=== PATIENT | female | born 2000 | race Two or more races ===

== ENCOUNTER 2020-04-20 15:16 | Outpatient (REF) | payer OTHER, SELFPAY ==
[2020-04-21 03:37] LABS: CT PCR NOT DETECTED (Not Detect.); NG PCR NOT DETECTED (Not Detect.)
== END 2020-04-20 15:17 | disposition home or self-care (01) ==
LOC: HO.LAB 15:16
PROVIDERS: Visit Provider Advanced Practice Midwife
DX: Z01.419 Encounter for gynecological examination (general) (routine) without abnormal findings (principal); Z11.8 Encounter for screening for other infectious and parasitic diseases; Z11.3 Encounter for screening for infections with a predominantly sexual mode of transmission
CPT/HCPCS: 87491; 87591; 88142

== ENCOUNTER 2020-09-17 08:20 | Outpatient (REF) | payer OTHER, SELFPAY ==
[2020-09-17 11:12] LABS: Thyroid Stimulating Hormone 1.51 uIU/mL (0.32-4.0)
[2020-09-17 16:16] LABS: CT PCR NOT DETECTED (Not Detect.); NG PCR NOT DETECTED (Not Detect.)
[2020-09-18 12:01] LABS: BV Int Neg Control Negative (Negative); BV Int Pos Control Positive (Positive)
[2020-09-20 14:07] LABS: Prolactin 12.4 ng/mL
[2020-09-21 18:01] LABS: DHEA Sulfate 341 mcg/dL (18-391)
[2020-09-22 18:57] LABS: Testosterone, Total 68 ng/dL (2-45)
== END 2020-09-17 08:21 | disposition home or self-care (01) ==
LOC: HO.LAB 08:20
PROVIDERS: Visit Provider Advanced Practice Midwife
DX: N92.6 Irregular menstruation, unspecified (principal); R10.2 Pelvic and perineal pain; Z20.2 Contact with and (suspected) exposure to infections with a predominantly sexual mode of transmission
CPT/HCPCS: 36415; 81025; 82627; 83498; 84146; 84402; 84403; 84443; 87480; 87491; 87510; 87591; 87660; 99212

== ENCOUNTER 2020-10-05 11:00 | Outpatient (REF) | payer OTHER, SELFPAY ==
--- NOTE | ~2020-10-05 | US_ITS ---
EXAMINATION: US PELVIS AND TRANSVAGINAL CLINICAL INFORMATION: Pelvic and perineal pain. COMPARISON: None. TECHNIQUE: Transabdominal and transvaginal imaging of pelvis is performed. FINDINGS: On transabdominal ultrasound the uterus is anteverted and anteflexed measuring 8.2 cm in length, 3.8 cm in AP and 5.9 cm in transverse dimension. Endometrial thickness is 1.9 cm. No focal uterine lesions seen. Right ovary measures 3.9 x 2.0 x 2.5 cm and volume 10.2 mL. It appears unremarkable. Left ovary measures 4.0 x 3.1 x 2.9 cm and volume 18.5 mL. There is a slightly echogenic ruptured lesion measuring 2.0 x 1.7 x 1.7 cm, question ruptured or corpus luteal cyst. There is a small amount of free fluid in the cul-de-sac. US/US pelvic and transvaginal IMPRESSION: Anteverted and anteflexed uterus without focal lesion. Small left ovarian rupture or corpus luteal cyst. Small amount of free fluid in the cul-de-sac.
== END 2020-10-05 11:01 | disposition home or self-care (01) ==
LOC: HO.US 11:00
PROVIDERS: PCP Internal Medicine Sports Medicine; Visit Provider Advanced Practice Midwife
DX: R10.2 Pelvic and perineal pain (principal); N92.6 Irregular menstruation, unspecified
CPT/HCPCS: 76830; 76856

== ENCOUNTER → 2020-10-12 11:21 | Outpatient (BNVA) | payer OTHER, SELFPAY | PROVIDERS: PCP Internal Medicine Sports Medicine; Visit Provider Advanced Practice Midwife ==

== ENCOUNTER → 2020-10-29 10:36 | Outpatient (BNVA) | payer OTHER, SELFPAY | PROVIDERS: PCP Internal Medicine Sports Medicine; Visit Provider Advanced Practice Midwife | DX: Z32.01 Encounter for pregnancy test, result positive (principal); O26.891 Other specified pregnancy related conditions, first trimester; N92.6 Irregular menstruation, unspecified; K29.70 Gastritis, unspecified, without bleeding; Z3A.09 9 weeks gestation of pregnancy | CPT/HCPCS: 99212 ==

== ENCOUNTER → 2020-11-04 09:49 | Outpatient (BNVA) | payer OTHER, SELFPAY | PROVIDERS: Visit Provider Advanced Practice Midwife ==

== ENCOUNTER 2020-11-05 08:53 | Outpatient (REF) | payer OTHER, SELFPAY ==
--- NOTE | ~2020-11-05 | US_ITS ---
EXAMINATION: OBSTETRICAL ULTRASOUND, FIRST TRIMESTER HISTORY: 20-year-old at the 10.4 weeks of gestation Uncertain dates LMP: 08/24/2020 COMPARISON: 10/05/2020 TECHNIQUE: Real time transabdominal imaging with color and M-mode Doppler. FINDINGS: A single, live IUP CRL of 16.6 mm c/w 8.1wks is noted. Heart Rate: 169 beats per minute. Both maternal ovaries are seen and appear normal. GESTATIONAL AGE: 1. GA from LMP: 10.4 wks 2. GA from AUA: 8.1 wks ESTIMATED DATE OF DELIVERY: 1. BESS from LMP: 05/31/2021 2. BESS from AUA: 06/16/2021 US/US OB <= 14 weeks fetus IMPRESSION: 1. A single live IUP 2. Size less than dates, CRL corresponds to 8.1 weeks. 3. Adjust her BESS to 06/16/2021 based on today's examination. Thank you very much for this referral. This note was generated with a voice recognition program. Please excuse any errors which may have been overlooked during my review of this note. Sometimes these errors may affect the content or meaning of a given sentence.
== END 2020-11-05 08:54 | disposition home or self-care (01) ==
LOC: HO.US 08:53
PROVIDERS: Visit Provider Advanced Practice Midwife
DX: O26.841 Uterine size-date discrepancy, first trimester (principal); Z3A.10 10 weeks gestation of pregnancy
CPT/HCPCS: 76801

== ENCOUNTER 2020-11-26 10:23 | Outpatient (REF) | payer OTHER, SELFPAY ==
[2020-11-26 16:44] LABS: CT PCR NOT DETECTED (Not Detect.); NG PCR NOT DETECTED (Not Detect.)
[2020-11-27 12:00] LABS: BV Int Neg Control Negative (Negative); BV Int Pos Control Positive (Positive)
== END 2020-11-26 10:24 | disposition home or self-care (01) ==
LOC: HO.LAB 10:23
PROVIDERS: Visit Provider Advanced Practice Midwife
DX: O26.891 Other specified pregnancy related conditions, first trimester (principal); R30.0 Dysuria; F43.9 Reaction to severe stress, unspecified
CPT/HCPCS: 81003; 87086; 87480; 87491; 87510; 87591; 87660; 99212

== ENCOUNTER 2020-12-03 10:26 | Outpatient (REF) | payer OTHER, SELFPAY ==
--- NOTE | ~2020-12-03 | US_ITS ---
EXAMINATION: OBSTETRICAL ULTRASOUND, FIRST TRIMESTER HISTORY: 20-year-old at the 12.1 weeks of gestation NT screening COMPARISON: 11/05/2020 TECHNIQUE: Real time transabdominal imaging with color and M-mode Doppler. FINDINGS: A single, live IUP CRL of 62.6 mm c/w 12.5wks is noted. Heart Rate: 167 beats per minute. Normal yolk sac seen. NT was 2.7.mm. NB Present The embryo appears sonographically wnl for this GA. Both maternal ovaries are seen and appear normal. GESTATIONAL AGE: 1. Established GA: 12.1 wks 2. GA from AUA: 12.5 wks ESTIMATED DATE OF DELIVERY: 1. Established BESS: 06/16/2021 2. BESS from AUA: 06/12/2021 US/US OB 1T nuc measure IMPRESSION: 1. A single live IUP 2. Size equals dates 3. NT of 2.7 mm MFM Consultation: I reviewed the ultrasound findings along with significance of NT measurement. The NT of less than 3mm is generally reassuring. However, the sensitivity for T21 detection is only 60%. I reviewed the availability of serum aneuploidy screening which includes cell-free DNA and placental protein based tests. I discussed the sensitivity, false-positive rate, and other limitations associated with each test. I also reviewed the availability of invasive diagnostic tests that are associated small but definite risk of miscarriage. We also reviewed the differences between screening tests and diagnostic tests. After our discussion, she opted for the First trimester screening that is based on cell-free DNA or non-invasive testing (NIPT). The result will be faxed to your office in approximately 7 days. A follow up at 18 weeks for survey has been scheduled. Thank you very much for this referral. Total time 30 minutes. The time spent was devoted to counseling the patient about the disease and diagnosis, coordinating care including reviewing her records, pertinent lab data and studies, as well as discussing diagnostic evaluation and workup, plan therapeutic interventions and future disposition of care. This includes any additional research needed to obtain further information in formulating the plan of care of this patient. This note was generated with a voice recognition program. Please excuse any errors which may have been overlooked during my review of this note. Sometimes these errors may affect the content or meaning of a given sentence.
[2020-12-03 12:24] LABS: Hematocrit 40.1 % (37-47); Hemoglobin 13.9 g/dl (12.0-16.0); Mean Corpuscular HGB Conc 34.7 g/dl (31.0-35.0); Mean Corpuscular Hemoglobin 29.3 pg (27.0-33.0); Mean Corpuscular Volume 84.4 fL (80-98); Mean Platelet Volume 10.3 fL (9.4-12.3); Platelet Count 257 X10*3/uL (160-400); Red Blood Count 4.75 X10*6/uL (4.20-5.50); Red Cell Distribution Width 12.5 % (11.0-16.0); White Blood Count 8.8 X10*3/uL (4.8-10.8)
[2020-12-03 12:46] LABS: Amphetamine Screen Urine Not Detected (Not Detect); Barbiturates, Urine Not Detected (Not Detect); Benzodiazepines Screen Urine Not Detected (Not Detect); Cannabinoid Screen Urine POSITIVE (Not Detect); Cocaine Screen Urine Not Detected (Not Detect); Opiate Screen Urine Not Detected (Not Detect); Phencyclidine Screen Urine Not Detected (Not Detect)
[2020-12-03 13:01] LABS: Syphilis Screen Nonreactive (Nonreactive)
[2020-12-04 09:01] LABS: Rubella IgG Antibody 7.16 Index
[2020-12-06 03:42] LABS: HBsAGNum1 0.15 S/CO (0.00-0.99); Hepatitis B Surface Antigen Negative (Negative); ~HepC Num1 0.06 S/CO (0.00-0.79); ~Hepatitis C Antibody Nonreactive (Nonreactive)
[2020-12-06 03:45] LABS: HIV AB/AG Nonreactive (Nonreactive); HIV Num 1 0.11 S/CO (0.00-0.99)
[2020-12-06 22:56] LABS: Hematocrit 41.2 % (35.0-45.0); Hemoglobin 13.7 g/dL (11.7-15.5); MCH 28.2 pg (27.0-33.0); MCV 84.9 fL (80.0-100.0); RBC 4.85 Million/uL (3.80-5.10); RDW 12.4 % (11.0-15.0)
== END 2020-12-03 10:27 | disposition home or self-care (01) ==
LOC: HO.US 10:26
PROVIDERS: Visit Provider Advanced Practice Midwife
DX: Z34.91 Encounter for supervision of normal pregnancy, unspecified, first trimester (principal); Z36.82 Encounter for antenatal screening for nuchal translucency
CPT/HCPCS: 76813; 80307; 83020; 85014; 85018; 85027; 85041; 86762; 86780; 86787; 86803; 86850; 86900; 86901; 87340; 87389

== ENCOUNTER → 2020-12-16 13:43 | Outpatient (BNVA) | payer OTHER, SELFPAY | PROVIDERS: Visit Provider Advanced Practice Midwife | DX: Z34.92 Encounter for supervision of normal pregnancy, unspecified, second trimester (principal); Z3A.14 14 weeks gestation of pregnancy | CPT/HCPCS: 99212 ==

== ENCOUNTER 2022-05-25 09:34 | Outpatient (REF) | payer OTHER, SELFPAY ==
[2022-05-25 15:11] LABS: CT PCR NOT DETECTED (Not Detect.); NG PCR NOT DETECTED (Not Detect.)
[2022-05-26 12:10] LABS: BV Int Neg Control Negative (Negative); BV Int Pos Control Positive (Positive)
== END 2022-05-25 09:35 | disposition home or self-care (01) ==
LOC: HO.LNP 09:34
PROVIDERS: Visit Provider Advanced Practice Midwife
DX: Z11.3 Encounter for screening for infections with a predominantly sexual mode of transmission (principal); N89.8 Other specified noninflammatory disorders of vagina
CPT/HCPCS: 87480; 87491; 87510; 87591; 87660

== ENCOUNTER 2023-03-14 08:40 | Outpatient (AMB) | payer OTHER, SELFPAY ==
--- NOTE | 2023-03-14 09:06 | MHC.OFFVIS ---
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 The patient agreed to use of a medical representative during this encounter. Scribed for [place]IA Jackson by Katelynn Lamb medical representative, on 03/14/2023 at 9:38 am EST. Principal Clerk Required: Yes Principal Clerk Language: Cane Pusher Name: [email or web address] [id number] Information Interpreted: non-clinical & clinical Director Of Distribution: Director Of Distribution Present (Aidyn) Allergies No Known Allergies Allergy (Verified 03/14/23 09:12) Is last menstrual period known: Yes Last menstrual period: 01/29/23 Post menopausal: No HPI HPI Comments History of Present Illness Details She is a premenopausal woman presenting for annual exam. She admits to eating healthy and tries to stay active with exercise. Currently sexually active and last UPI was Sunday; does not use BC. She removed Nexplanon due to weight gain earlier this past summer. Reports she is not interested in BC because she is scared of weight gain and is loosing weight without trying. Reports her menses was irregular in the past prior to BC, skipping 2 months at a time. Denies vaginal itching and irritation. STD screening and blood work offered; she accepts. Denies family hx of breast, colon and ovarian cancer. Last pap smear 04/21/20. [facility] Surgical History No history of previous surgery Family History Father No problems noted. Mother No problems noted. Paternal Grandmother Alzheimer's dementia Paternal Grandfather Diabetes 1.5, managed as type 1 CAD (coronary artery disease) Social History Household Members: Significant Other Both parents involved: Yes Caregiver staying overnight: No Housing: House Are you a primary rn patient care to a significant other at home: No Do you presently have visiting nurse or other home services: No 75 years or older and lives alone: No Alcohol intake: never Patient Tobacco Use Status: Never used Tobacco service: No Current occupational status: unemployed Gender identity: Female Female Reproductive History Menstrual Age of Menarche: 7 Duration of menses: 3-5 days Date of last menstrual period: 01/29/23 control method: none Total pregnancies: 1 Full term: 1 Number of Living Children: 1 Date of last pap smear: 04/21/20 (negative) Physical Exam Vital Signs: Last Vital Signs BP 110/62 03/14/23 09:10 BMI result Body Mass Index 27.8 Const General: cooperative, healthy appearing, no acute distress, well developed and alert Orientation/consciousness: patient oriented x3 HEENT Head: Yes normal to inspection Eyes General: appearance normal, both eyes and all related structures Neck Neck: Yes normal visual inspection Thyroid: Thyroid normal Chest Chest palpation & inspection: normal inspection of the chest Breast/axilla inspection: normal inspection of the breasts (no puckering, dimpling, peau de orange, retraction, discharge, masses) Breast/axilla palpation: normal palpation of the breasts Resp Effort & Inspection: normal respiratory effort GI Inspection: Yes normal to inspection Palpation (GI): Soft to palpation (to palpation) Rectal Exam - Female: deferred General: Yes bladder normal to inspection External Female Exam: normal external appearance and normal appearance of the urethra Speculum Exam - Vagina: normal appearance of the vagina, normal palpation and normal vaginal discharge Speculum Exam - Cervix: normal appearance of the cervix and normal palpation Bimanual exam- vagina & uterus: normal palpation and normal palpation Bimanual Exam- Adnexa, other: normal adnexae and no masses Skin General skin exam: no rashes or lesions noted Neuro General: patient oriented x3 Cognition (Neuro): normal cognition Extrem General: Yes normal to inspection Psych Attitude: cooperative Thought process: Normal thought process present Results AMB Test Urine AMB Test Urine Negative Last Edit by RICHI Montalvo on 03/14/23 09:29 AMB Test Urine AMB Test Urine Negative Last Edit by RICHI Montalvo on 03/14/23 09:50 Results Reviewed Results Reviewed: Laboratory Last Values Tst Clinic Negative 03/14/23 09:47 Assessment & Plan Assessment & Plan (1) Encounter for well woman exam: Code(s): Z01.419 - Encounter for gynecological examination (general) (routine) without abnormal findings Plan: Discussed: Current recommendations for pap smears per ASCCP guidelines. Breast awareness and periodic self breast exams. Maintaining a healthy lifestyle including a well balanced diet and routine exercise. Advised to use condoms for STD and prevention. If missed menses take at home test. All of her questions and concerns were addressed to the best of my ability. RTO in one year for AG. (2) Potential exposure to STD: Code(s): Z20.2 - Contact with and (suspected) exposure to infections with a predominantly sexual mode of transmission Plan: BV testing and GC/CT panel today. STD blood work ordered. Await results and treat accordingly. (3) Irregular menses: Code(s): N92.6 - Irregular menstruation, unspecified Plan: Monitor periods, report any unscheduled bleeding, bleeding episodes less than 21 days apart or heavy prolonged menstrual bleeding. If abnormal bleeding pattern occurs, contact the office for further evaluation. Orders: Orders Hepatitis C Antibody Today Z20.2 - Contact with and (suspected) exposure to infections with a predominantly sexual mode of transmission Syphilis Screen Today Z20.2 - Contact with and (suspected) exposure to infections with a predominantly sexual mode of transmission AMB HCG Urine Test Today Z32.02 - Encounter for test, result negative CT NG by PCR Today Z20.2 - Contact with and (suspected) exposure to infections with a predominantly sexual mode of transmission Pap Smear Today Z12.4 - Encounter for screening for malignant neoplasm of cervix AMB HCG Urine Test Today Z32.02 - Encounter for test, result negative Hepatitis B Core Antibody Today Z20.2 - Contact with and (suspected) exposure to infections with a predominantly sexual mode of transmission HIV Ab/Ag Today Z20.2 - Contact with and (suspected) exposure to infections with a predominantly sexual mode of transmission Coding Level of Care Code Est Pt Prev Care 18-39y(58390) Diagnoses Encounter for well woman exam Z01.419 Potential exposure to STD Z20.2 Irregular menses N92.6
[2023-03-14 09:10] VITALS: BP 110/62; BMI 27.8
== END 2023-03-14 09:48 | disposition home or self-care (01) ==
PROVIDERS: Visit Provider Advanced Practice Midwife
DX: Z01.419 Encounter for gynecological examination (general) (routine) without abnormal findings (principal); Z20.2 Contact with and (suspected) exposure to infections with a predominantly sexual mode of transmission; N92.6 Irregular menstruation, unspecified; Z32.02 Encounter for pregnancy test, result negative
CPT/HCPCS: 99395

== ENCOUNTER 2023-03-14 08:40 | Outpatient (REF) | payer OTHER, SELFPAY ==
[2023-03-14 14:37] LABS: CT PCR NOT DETECTED (Not Detect.); NG PCR NOT DETECTED (Not Detect.)
[2023-03-27 18:18] LABS: HPV mRNA E6/E7 rflx Not Detected (Not Detected)
== END 2023-03-14 08:41 | disposition home or self-care (01) ==
LOC: HO.LNP 08:40
PROVIDERS: Visit Provider Advanced Practice Midwife
DX: Z01.419 Encounter for gynecological examination (general) (routine) without abnormal findings (principal); N92.6 Irregular menstruation, unspecified; Z20.2 Contact with and (suspected) exposure to infections with a predominantly sexual mode of transmission; Z11.51 Encounter for screening for human papillomavirus (HPV)
CPT/HCPCS: 0353U; 81025; 87624; 88142; 99395

== ENCOUNTER 2023-12-25 10:52 | Outpatient (REF) | payer OTHER, SELFPAY ==
[2023-12-26 07:32] LABS: CT PCR NOT DETECTED (Not Detect.); NG PCR NOT DETECTED (Not Detect.)
[2023-12-26 09:02] LABS: Bacterial Vaginosis PCR NEGATIVE (Negative); Candida Group PCR NOT DETECTED (Not Detect); Candida glab krusei PCR NOT DETECTED (Not Detect); Trichomonas vaginalis PCR NOT DETECTED (Not Detect)
== END 2023-12-25 10:53 | disposition home or self-care (01) ==
LOC: HO.LAB 10:52
PROVIDERS: Visit Provider Advanced Practice Midwife
DX: N89.8 Other specified noninflammatory disorders of vagina (principal); R63.5 Abnormal weight gain; R87.610 Atypical squamous cells of undetermined significance on cytologic smear of cervix (ASC-US); R30.0 Dysuria; N94.89 Other specified conditions associated with female genital organs and menstrual cycle; Z30.09 Encounter for other general counseling and advice on contraception; Z98.890 Other specified postprocedural states; Z20.2 Contact with and (suspected) exposure to infections with a predominantly sexual mode of transmission
CPT/HCPCS: 0352U; 87086; 87491; 87591; 99212

== ENCOUNTER 2023-12-25 10:52 | Outpatient (AMB) | payer OTHER, SELFPAY ==
--- NOTE | 2023-12-25 10:54 | A.OFFVIS_ITS ---
Vital Signs 12/25/23 11:05 Height 5 ft 4 in Weight 166 lb BMI 28.5 BP 110/68 Intake Visit Reasons: vaginal odor Airline Counter Agent Services: Airline Counter Agent Present Information Interpreted: clinical only Sample Hand: Sample Hand Present Allergies No Known Allergies Allergy (Verified 12/25/23 11:09) Medication List - Last Reconciled 12/25/23 by Minnie George CNM No Known Home Meds Is last menstrual period known: Yes Last menstrual period: 12/03/23 HPI HPI vaginal odor: Details: She an odor when she pees and it chiang when she pees it is only when she pees she does not like mucosal membranes that burning she has no itching or anything else. She is not contraceptive thing she is interested in contraception she had the Nexplanon in the past but she had took it out the 2nd time because she was gaining weight with it and it was letting her lose weight. Her periods are little bit irregular she has been keeping track in her phone and they range from q 3-5 weeks, her last period was December 02 but she is not sure when the Nexplanon come she expressed interested in Depo-Provera. 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 She thinks that is why she might have a urinary tract infection. [facility] Surgical History No history of previous surgery Family History Father No problems noted. Mother No problems noted. Paternal Grandmother Alzheimer's dementia Paternal Grandfather Diabetes 1.5, managed as type 1 CAD (coronary artery disease) Social History Household Members: Significant Other Housing: House Are you a primary aged or disabled care worker to a significant other at home: No Do you presently have visiting nurse or other home services: No Alcohol intake: never Patient Tobacco Use Status: Never used Tobacco service: No Current occupational status: unemployed Gender identity: Female Female Reproductive History Menstrual Age of Menarche: 7 Duration of menses: 3-5 days Date of last menstrual period: 12/03/23 control method: none Total pregnancies: 1 Full term: 1 Date of last pap smear: 03/14/23 (epithelial cell abnormality, previous pap,2020,WNL) History of abnormal pap smear: Yes Physical Exam Vital Signs: Last Vital Signs BP 110/68 12/25/23 11:05 BMI result Body Mass Index 28.5 Other: Normal pelvic exam uterus small anteverted mobile nontender bladder also nontender adnexa nontender no evidence of abnormal discharge or inflammation. Evidence of abdominal plasty. External Female Exam: normal external appearance and normal appearance of the urethra Speculum Exam - Vagina: normal appearance of the vagina and normal vaginal discharge Speculum Exam - Cervix: normal appearance of the cervix and Cervical os closed Bimanual exam- vagina & uterus: normal bimanual exam, uterine size normal, consistency normal, uterine mobility normal, uterine shape normal and non-tender Bimanual Exam- Adnexa, other: normal adnexae, no masses and No adnexal tenderness Results Reviewed Results Reviewed: Name: Ernestina Martinez Age/Sex: 22/F Attending: Yasmin Huerta CNM : 2000 Submitted by: Yasmin Huerta CNM Copies to: MR #: [id number] Status: DEP REF Collected: 03/14/23 Location: [facility] Received: 03/14/23 Interpretation General Category: Epithelial cell abnormality. Adequacy: Endocervical component present. Interpretation: Atypical squamous cells of undetermined significance, rare. Abundant, partially obscuring acute inflammation and blood. HPV mRNA E6/E7: Not Detected This assay detects E6/E7 viral messenger RNA (mRNA) from 14 high-risk HPV types (16, 18, 31, 33, 35, 39, 45, 51, 52, 56, 58, 59, 66, 68) HPV testing performed by [facility], [place], [place]. See reference laboratory portion of the EMR for entire report. Clinical Information LMP: 01/29/23 Previous PAP test: 04/21/20, WNL Material Received ThinPrep-Cervical Electronically Signed By: Oralia Mendoza 03/28/23 0901 The Pap Test is a screening procedure with the inherent possibility of both false negative and false positive results. Results should be interpreted in the context of historic and current clinical findings. Reliability of the Pap Test is enhanced by performing the test on a regular repetitive basis. Patient: Ernestina Martinez Age/Sex: 22/F MR#: [id number] Page 1 of 1 Assessment & Plan Assessment & Plan (1) ASCUS of cervix with negative high risk HPV: Comment: From 03/14/2023/(BM.) Code(s): R87.610 - Atypical squamous cells of undetermined significance on cytologic smear of cervix (ASC-US) Category: Medical (2) Vaginal odor: Code(s): N89.8 - Other specified noninflammatory disorders of vagina Category: Medical (3) Encounter for screening examination for sexually transmitted disease: Code(s): Z11.3 - Encounter for screening for infections with a predominantly sexual mode of transmission Category: Medical (4) Dysuria: Comment: Will await results of UA C&S sent today, in the meantime drink lots of water unsweetened cranberry juice and try to not hold urine excessively. Code(s): R30.0 - Dysuria Category: Medical (5) control counseling: Comment: Discussed options and side effects. She decided to go back to the [facility], Site papers 12/25/2023 to be inserted with next menses after it arrives. Code(s): Z30.09 - Encounter for other general counseling and advice on contraception Category: Medical (6) Hx of cosmetic surgery: Comment: Evidence of abdominoplasty Code(s): Z98.890 - Other specified postprocedural states Category: Surgical Plan Discussed the possibility that she might have a urinary tract infection she was however nontender on exam and bladder palpation so it was not immediately obvious that it might be a urinary tract infection while we are waiting the results of the the urine culture I recommend that she drink lots and lots of water and really try not to hold her P in addition she can try unsweetened cranberry juice as well. 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 I did ask her to call the office in 3 days to get the results of her urine culture I did explicit teaching on how to obtain a really good clean-catch urine test. Full teaching about the Nexplanon was done again even though she has had it twice I explained that we always want to insert it at the beginning of her. Both to ensure that she is not but also to minimize the risks of having a knowing unpleasant bleeding side effects for the 1st few months of its use. Placing it at the beginning of her menses minimizes this chance. Next visit will be with her menses for insertion of the Nexplanon as close to the beginning in her menses as possible. Testing done in the visit for gonorrhea chlamydia trichomoniasis BV and yeast her vaginal discharge appeared completely normal there was no redness or abnormal discharge. Cervix is parous pink normal mobile nontender. Bladder nontender as well. Orders: Orders CT NG by PCR Today N89.8 - Other specified noninflammatory disorders of vagina, Z20.2 - Contact with and (suspected) exposure to infections with a predominantly sexual mode of transmission Bacterial Vaginosis Panel Today N89.8 - Other specified noninflammatory disorders of vagina, N94.89 - Other specified conditions associated with female genital organs and menstrual cycle Urine Culture Today N94.89 - Other specified conditions associated with female genital organs and menstrual cycle Coding Level of Care Code Est Pt Level 4 (54094) Diagnoses ASCUS of cervix with negative high risk HPV R87.610 Vaginal odor N89.8 Encounter for screening examination for sexually transmitted disease Z11.3 Dysuria R30.0 control counseling Z30.09 Hx of cosmetic surgery Z98.890
[2023-12-25 11:05] VITALS: BP 110/68; BMI 28.5
== END 2023-12-25 13:07 | disposition home or self-care (01) ==
LOC: HO.HWSM 10:53
PROVIDERS: Visit Provider Advanced Practice Midwife
DX: R87.610 Atypical squamous cells of undetermined significance on cytologic smear of cervix (ASC-US) (principal); N89.8 Other specified noninflammatory disorders of vagina; Z11.3 Encounter for screening for infections with a predominantly sexual mode of transmission; R30.0 Dysuria; Z30.09 Encounter for other general counseling and advice on contraception; Z98.890 Other specified postprocedural states
CPT/HCPCS: 99214

== ENCOUNTER 2023-12-25 11:38 | Outpatient (REF) | payer OTHER, SELFPAY | END 2023-12-25 11:39 | disposition home or self-care (01) | LOC: HO.LNP 11:38 | PROVIDERS: Visit Provider Advanced Practice Midwife | DX: Z13.89 Encounter for screening for other disorder (principal) ==

== ENCOUNTER 2024-01-09 09:45 | Outpatient (AMB) | payer OTHER, SELFPAY ==
--- NOTE | 2024-01-09 09:53 | MHC.OFFVIS ---
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 Patient was seen on December 24 for control consult all methods of control were discussed she was very clear she wanted to go get back on the Nexplanon which she has had in the past. She wanted control just in case and I provided a prescription for control pills for her on that day however there was a glitch in the computer that interrupted the transmission of the prescription so the prescription did not get sent she started her period on the weekend of December 28 and did not have the pills and called for them and they were sent again on December 31. So she has been sexually active since then and not using contraception in any form. She came today hoping to get her Nexplanon she is on day 11 of her cycle at this point. we do not have the Nexplanon available yet. It was clearly explained the patient at the time and now again today that we can insert the Nexplanon until it arrives and is available, and also that I will not insert it until she is at the beginning of her period, and I also would not inserted midcycle when she has been having regular sex. She said she is leaving the state for work on Sunday. She would be interested in Plan B, she has been having sex regularly, she had sex as recently as last night. She is due for Pap smear as she had ASCUS, negative HPV last yr. She has been very sexually active with a new partner and she does have an odor. [facility] Surgical History No history of previous surgery Family History Father No problems noted. Mother No problems noted. Paternal Grandmother Alzheimer's dementia Paternal Grandfather Diabetes 1.5, managed as type 1 CAD (coronary artery disease) Social History Household Members: Significant Other Both parents involved: Yes Caregiver staying overnight: No Housing: House Are you a primary healthcare sales representative to a significant other at home: No Do you presently have visiting nurse or other home services: No 75 years or older and lives alone: No Alcohol intake: never Patient Tobacco Use Status: Never used Tobacco service: No Current occupational status: unemployed Gender identity: Female Female Reproductive History Menstrual Age of Menarche: 7 Date of last menstrual period: 12/29/23 control method: pills Total pregnancies: 1 Full term: 1 Date of last pap smear: 03/14/23 History of abnormal pap smear: Yes Physical Exam Vital Signs: Last Vital Signs BP 118/68 01/09/24 09:54 BMI result Body Mass Index 28.1 Results Reviewed Results Reviewed: Name: Ernestina Martinez Age/Sex: 22/F Attending: Yasmin Huerta CNM : 2000 Submitted by: Yasmin Huerta CNM Copies to: MR #: [id number] Status: DEP REF Collected: 03/14/23 Location: [facility] Received: 03/14/23 Interpretation General Category: Epithelial cell abnormality. Adequacy: Endocervical component present. Interpretation: Atypical squamous cells of undetermined significance, rare. Abundant, partially obscuring acute inflammation and blood. HPV mRNA E6/E7: Not Detected This assay detects E6/E7 viral messenger RNA (mRNA) from 14 high-risk HPV types (16, 18, 31, 33, 35, 39, 45, 51, 52, 56, 58, 59, 66, 68) HPV testing performed by [facility], [place], [place]. See reference laboratory portion of the EMR for entire report. Clinical Information LMP: 01/29/23 Previous PAP test: 04/21/20, WNL Material Received ThinPrep-Cervical Electronically Signed By: Oralia Mendoza 03/28/23 0901 The Pap Test is a screening procedure with the inherent possibility of both false negative and false positive results. Results should be interpreted in the context of historic and current clinical findings. Reliability of the Pap Test is enhanced by performing the test on a regular repetitive basis. Patient: Ernestina Martinez Age/Sex: 22/F MR#: [id number] Page 1 of 1 Assessment & Plan Assessment & Plan (1) control counseling: Comment: Discussed options and side effects. She decided to go back to the Nexplanon, Site papers 12/25/2023 to be inserted with next menses after it arrives. Code(s): Z30.09 - Encounter for other general counseling and advice on contraception Category: Medical (2) ASCUS of cervix with negative high risk HPV: Comment: From 03/14/2023/(BM.) Code(s): R87.610 - Atypical squamous cells of undetermined significance on cytologic smear of cervix (ASC-US) Category: Medical (3) Hx of cosmetic surgery: Comment: Evidence of abdominoplasty Code(s): Z98.890 - Other specified postprocedural states Category: Surgical Plan Patient is here because she says she was told to come in to get her Nexplanon. Patient was seen on December 24 for control consult all methods of control were discussed she was very clear she wanted to go get back on the Nexplanon which she has had in the past. She wanted control just in case and I provided a prescription for control pills for her on that day however there was a glitch in the computer that interrupted the transmission of the prescription so the prescription did not get sent she started her period on the weekend of December 28 and did not have the pills and called for them and they were sent again on December 31. So she has been sexually active since then and not using contraception in any form. She came today hoping to get her Nexplanon she is on day 11 of her cycle at this point. we do not have the Nexplanon available yet. It was clearly explained the patient at the time and now again today that we can insert the Nexplanon until it arrives and is available, and also that I will not insert it until she is at the beginning of her period, and I also would not inserted midcycle when she has been having regular sex. She said she is leaving the state for work on Sunday. She would be interested in Plan B, she has been having sex regularly, she had sex as recently as last night. She is due for Pap smear as she had ASCUS, negative HPV last yr. She has been very sexually active with a new partner and she does have an odor. 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 I recommend that she do a test if she is not getting her. During that last row of pills but she should otherwise continue on from 1 pill pack to the next. 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 She will be there till April. I helped her look up where [facility] in [facility], and recommend that she call them when she is there and see if they have Nexplanon available and if it would be available to her to get it there when she gets her period, rather than coming back to [place] for this. I also though she was not scheduled for any of this did her Pap smear and testing for gonorrhea chlamydia trichomoniasis Gardnerella and Pavithra.. She will be having the same phone number with her so we can contact her with the results.. I asked her what she would do if she got and she said she does not think about that. Medications: New levonorgestrel (Plan B One-Step) 1.5 mg PO ONCE 1 tab 4RF Coding Level of Care Code Est Pt Level 3 (69433) Diagnoses control counseling Z30.09 ASCUS of cervix with negative high risk HPV R87.610 Hx of cosmetic surgery Z98.890
[2024-01-09 09:54] VITALS: BP 118/68; BMI 28.1
== END 2024-01-09 11:14 | disposition home or self-care (01) ==
PROVIDERS: Visit Provider Advanced Practice Midwife
DX: Z30.09 Encounter for other general counseling and advice on contraception (principal); R87.610 Atypical squamous cells of undetermined significance on cytologic smear of cervix (ASC-US); Z98.890 Other specified postprocedural states
CPT/HCPCS: 99213

== ENCOUNTER 2024-01-09 09:45 | Outpatient (REF) | payer OTHER, SELFPAY ==
[2024-01-10 06:12] LABS: CT PCR NOT DETECTED (Not Detect.); NG PCR NOT DETECTED (Not Detect.)
[2024-01-10 10:38] LABS: Bacterial Vaginosis PCR NEGATIVE (Negative); Candida Group PCR NOT DETECTED (Not Detect); Candida glab krusei PCR NOT DETECTED (Not Detect); Trichomonas vaginalis PCR NOT DETECTED (Not Detect)
[2024-01-16 09:38] LABS: HPV mRNA E6/E7 Not Detected (Not Detected)
== END 2024-01-09 09:46 | disposition home or self-care (01) ==
LOC: HO.LAB 09:45
PROVIDERS: Visit Provider Advanced Practice Midwife
DX: Z12.4 Encounter for screening for malignant neoplasm of cervix (principal); Z11.51 Encounter for screening for human papillomavirus (HPV); Z20.2 Contact with and (suspected) exposure to infections with a predominantly sexual mode of transmission; N89.8 Other specified noninflammatory disorders of vagina; R87.610 Atypical squamous cells of undetermined significance on cytologic smear of cervix (ASC-US)
CPT/HCPCS: 0352U; 36415; 87491; 87591; 87624; 87625; 88175; 99212